=== PATIENT | male | born 1965 | race Caucasian/White ===

== ENCOUNTER → 2021-09-05 11:54 | Outpatient (CLI) | payer OTHER, SELFPAY ==
--- NOTE | ~2021-09-05 | US_ITS ---
EXAMINATION: US soft tissue head and neck DATE: 09/05/2021 12:37 INDICATION: Hypothyroidism. TECHNIQUE: Multiple ultrasound images of the thyroid were obtained. COMPARISON: None. FINDINGS: The right thyroid lobe measures 3.9 x 1.3 x 1.2 cm. The left thyroid lobe measures 2.9 x 0.9 x 0.9 c m. In the right thyroid lobe, there is a 9 mm solid, hypoechoic, [id number]-rosu nodule with smooth margin without echogenic foci (TI-RADS TR4). In the right thyroid lobe, there is a 3 mm nodule. IMPRESSION: 1. Small thyroid nodules, likely not clinically significant. No follow-up is needed. Reviewed, dictated and finalized at location A. IMPRESSION: 1. Small thyroid nodules, likely not clinically significant. No follow-up is ne eded.
--- NOTE | ~2021-09-05 | CT_ITS ---
EXAMINATION: CT chest abdomen pelvis w con EXAM DATE: 09/05/2021 12:37 INDICATION: Essential (hemorrhagic) thrombocythemia, Acquired absence of spleen. History of Hodgkin's disease. TECHNIQUE: Spiral CT of the chest, abdomen and pelvis was performed following intravenous injection o f 100 mL Omnipaque 350. Axial, coronal and sagittal images chest, abdomen and pelvis were reviewed. Coronal maximum intensity pixel images of chest reviewed. The dose-length product (DLP) for this ex amination was 1572.09 mGy-cm. The exposure was tailored according to patient size (auto mA exposure control), and iterative reconstruction (ASIR) was used as additional dose reduction technique. There is no prior study for comparison. FINDINGS: CHEST: Biapical scarring. There are no pleural or pericardial effusions. Tracheobronchial tree is patent. There is no mediastinal, hilar or axillary lymphadenopathy. There is no pneumothorax. Heart is normal in size. No evidence of coronary arterial calcification. ABDOMEN PELVIS: Small amount of splenosis in the splenectomy bed. The liver, spleen, adrenal glands and pancreas are unremarkable. Gallbladder is unremarkable. No biliary obstruction. Portal and spl enic veins are patent. Kidneys enhance symmetrically. There is no hydronephrosis. There is a left r enal cyst measuring 2.5 cm. The prostate is unremarkable. The bladder is unremarkable. There is no retroperitoneal or pelvic lymphadenopathy. Small bilateral inguinal fat-containing hernias. Some l eft thigh varicosity. Small supra umbilical fat-containing hernia. There are no findings to suggest appendicitis. The stomach and small bowel are unremarkable. There is expected amount of colonic stool. No free intraperitoneal gas. There are no osteoblastic or os teolytic lesions identified. IMPRESSION: 1. Small amount of splenosis. 2. No lymphadenopathy. 3. Biapical scarring. Reviewed, dictated and finalized at location G.
== END ==
PROVIDERS: PCP Family Medicine
DX: D47.3 Essential (hemorrhagic) thrombocythemia (principal); Z90.81 Acquired absence of spleen; E03.8 Other specified hypothyroidism; I87.2 Venous insufficiency (chronic) (peripheral); I80.9 Phlebitis and thrombophlebitis of unspecified site; Z85.71 Personal history of Hodgkin lymphoma; I83.893 Varicose veins of bilateral lower extremities with other complications; E04.2 Nontoxic multinodular goiter
CPT/HCPCS: 71260; 74177; 76536; Q9967